=== PATIENT | male | born 1950 | race Caucasian/White ===

== ENCOUNTER 2017-09-19 12:14 | Outpatient (CLI) | payer MEDICARE ==
--- NOTE | 2017-09-19 13:22 | CT ---
CT OF THORAX NONCONTRAST: COMPARISON: Reference is made to abdomen and pelvis CT 09/22/16. INDICATION: Pulmonary nodule, followup. FINDINGS: A 5 mm nodule at the medial aspect of the lingula is stable. No consolidation, effusion, or pneumoth orax. Evidence of prior granulomatous disease with scattered calcifications. Vascular disease inclu ding coronary artery calcium present. Granulomatous calcification is seen within the spleen and hepa tic parenchyma. No acute osseous pathology visualized. IMPRESSION: Stable 5 mm nodule of the lingula. POS: [facility]
== END 2017-09-19 12:15 | disposition home or self-care (01) ==
LOC: CT 12:14
PROVIDERS: ATTEND Family Medicine
DX: R91.1 Solitary pulmonary nodule (principal)
CPT/HCPCS: 71250

== ENCOUNTER 2019-09-18 14:53 | Outpatient (CLI) | payer MEDICARE ==
[~2019-09-18 14:53] MED LIST: Magnevist 469MG/ML 20 ML VIAL ONE
--- NOTE | 2019-09-18 16:24 | CT ---
CT TEMPORAL BONES NONCONTRAST: 09/18/19 HISTORY: 69-year-old male with ICD-10: H91.93, profound hearing loss of better ear. Bilateral hearing loss. COMPARISON: None. FINDINGS: Bilateral external auditory canals, middle ear cavities, and mastoid antra, are clear. At least the l arge bilateral mastoid air cells are clear. The bilateral internal auditory canals, cochleae, vestibu les, vestibular aqueducts, semicircular canals, ossicles, facial nerve canals, carotid canals, and ju gular bulbs, have normal morphology. Scutum is intact bilaterally. Thinning of bilateral tegmen tympa ni and tegmen mastoideum. No definite superior semicircular canal dehiscence. IMPRESSION: Essentially normal. POS: [facility]
--- NOTE | 2019-09-18 16:51 | MRI ---
MRI of thebrain with and without contrast: 09/18/2019 COMPARISON:None available HISTORY:Profound hearing loss TECHNIQUE: Multiplanar multisequence MR imaging of thebrain with and without contrast using internal auditory canal protocol Findings:The diffusion weighted imaging demonstrates no evidence for acute infarction. The axial gradient echo imaging demonstrates no evidence for intracranial hemorrhage. There are a few foci of increased T2 and FLAIR signal scattered throughout the white matter, suggesti ng small vessel disease. There is polypoid mucosal thickening involving the alveolar recess of bilateral maxillary sinuses. Thin section T2 weighted imaging through the skull base demonstrates normal signal intensity in the r egion of the internal auditory canal, cochlea, vestibule, and semicircular canals bilaterally. Regional bone marrow signal intensity appears within normal limits. Arterial flow voids at the axial level of the skull base appear grossly unremarkable on the T2-weight ed imaging. Thin section postcontrast imaging is obtained through the internal auditory canal, demonstrating no a bnormal enhancement involving the IAC, cochlea, vestibule, or semicircular canals on either side. Whole brain postcontrast imaging demonstrates no abnormal enhancement within the brain parenchyma. IMPRESSION: No MR abnormality seen to explain profound hearing loss. Essentially unremarkable examina tion as detailed above.
== END 2019-09-18 14:54 | disposition home or self-care (01) ==
LOC: BICCT 14:53
PROVIDERS: ATTEND Otolaryngology Otology & Neurotology
DX: H91.93 Unspecified hearing loss, bilateral (principal)
CPT/HCPCS: 70480; 70553; 82565; A9579

== ENCOUNTER 2021-09-14 09:12 | Outpatient (CLI) | payer MEDICARE | END 2021-09-14 09:13 | disposition home or self-care (01) | LOC: BICULT 09:12 | PROVIDERS: ATTEND Family Medicine | DX: R17 Unspecified jaundice (principal); K76.0 Fatty (change of) liver, not elsewhere classified; N28.1 Cyst of kidney, acquired; D73.89 Other diseases of spleen | CPT/HCPCS: 76700 ==